=== PATIENT | male | born 1985 | race African-American/Black ===

== ENCOUNTER 2016-11-11 18:24 | Emergency (ER) | payer SELFPAY ==
--- NOTE | 2016-11-11 20:21 | ED ORDER SUMMARY ---
..... Patient: JOSE ZUNIGA OrderSheet [facility] VisitID: [id number] [address] [place] [address] 31y, M Registration Date/Time: 11/11/2016 ORDER SHEET Weight: 102.5 kg (stated) Allergies: No Known Drug Allergy GENERAL ORDERS: EKG - ER Stat (18:51 11/11/2016 EKoroleva P.A.-C) (18:59 Lolly) Vitals (20:09 11/11/2016 EKoroleva P.A.-C) (20:16 Mora R.N.) MEDICATION ORDERS: Motrin PO 800 mg (NOW) (18:51 11/11/2016 EKoroleva P.A.-C) (Ack 18:53 Raphael R.N.) (18:59 Raphael R.N.) Hydrocodone-APAP PO 5/325 mg (NOW, HIGH ALERT MEDICATION) (18:51 11/11/2016 EKoroleva P.A.-C) (Ack 18:53 Raphael R.N.) (18:59 Raphael R.N.) IV FLUIDS: ORDER SHEET NOTES: [Electronically signed by Elana Gonzalez R.N. (20:36 11/11/2016)] [Electronically signed by Karuna Main P.A.-C (21:59 11/11/2016)] [Electronically locked/signed by Elana Gonzalez R.N. (20:36 11/11/2016)]
--- NOTE | 2016-11-11 20:21 | ED CLINICAL REPORT ---
Clinical Report - Physicians/Mid Levels [facility] [address] [place] [place] [address] 11/11/2016 18:27 [id number] Time Seen: 18:59 Nov 11 2016. Arrived- By private vehicle. Historian- patient. HISTORY OF PRESENT ILLNESS Chief Complaint: feeling off/ shaky/ bl foot pain, high blood pressure. This started just prior to arrival and is still present. No loss of appetite, weight loss or fatigue. Denies sleep problem. (Pt is a 31 y/o male w/ ho plantar fasciiatis with now b/l pain worsening over last week, working extensive time, working two jobs. No new injury. Has felt off over last few days. Reports this happens when he has pain, unable to describe further his "weird feeling" . Has at times taken tylenol. Denies sob/ chest pain, ad pain. Denies headache.). REVIEW OF SYSTEMS No fever, sore throat, sinus drainage, nasal congestion or cough. No difficulty breathing, vomiting, chills or calf pain. All systems otherwise negative, except as recorded above. SOCIAL HISTORY Smoker- current status unknown. Alcohol use. No drug use. ADDITIONAL NOTES The nursing notes have been reviewed. PHYSICAL EXAM Vital Signs: 11/11/2016 18:34 BP: 180/116. HR: 109. RR: 18. O2 saturation: 100%. Pain level now: 10/10. Appearance: Alert. Eyes: Eyes normal inspection. ENT: Nose normal. Neck: Normal inspection. No lymphadenopathy. CVS: Normal heart rate and rhythm. Respiratory: No respiratory distress. Breath sounds normal. No accessory muscle use. Back: Normal inspection. No CVA tenderness. Skin: Skin warm. Normal skin color. Extremities: (mid foot plantar tenderness. , good b/l pulses. full rom, no rsh). Neuro: Oriented X 3. LABS, X-RAYS, AND EKG EKG: EKG time: (1856). No acute process. No acute ischemia. Tachycardia (105). Normal QRS complex. Normal axis. Normal QT. The study has been interpreted contemporaneously. The study has been independently viewed by me. The EKG appears to be a good tracing. PROGRESS AND PROCEDURES Course of Care: Perhaps bp may be elevated to pain, pt had podiatry prior, but now unable to do so, due to insurance. Pt with no headache. EKG negative. Pt bp normalizing, he is instructed to have such checked with his pcp, which he has. Given pain meds in interval. Otherwise no foot injury. 11/11/2016 20:33 BP: 144/90. HR: 89. RR: 20. O2 saturation: 97%. Pain level now: 09/08. Patient is stable. Physical exam findings are improved. Symptoms better. Patient/family counseled. Disposition: Discharged. CLINICAL IMPRESSION Hypertension. Right and left plantar fasciitis INSTRUCTIONS (elevate your feet). Warnings: Further evaluation is necessary. Prescription Medications: Ibuprofen 800 mg tablets: take 1 tablet orally every 8 hours for 5 days, as needed for pain. No refill. Ultram 50 mg: take 1 orally every 6 hours for 3 days. Dispense ten (10). No refills. Substitution is permissible. Follow-up: Follow up with your doctor in three days. Follow-up with: Jabari Del Valle DPM, Podiatry, , [facility], [address] [place] [address], [address], [place] [address] Follow up. Call for the next available appointment. (Electronically signed by Karuna Main P.A.-C 11/11/2016 21:59)
--- NOTE | 2016-11-11 20:21 | ED NURSING NOTES ---
Clinical Report - Nurses [facility] [address] [place] [address] 11/11/2016 18:27 [id number] Triage time 18:34. Acuity: LEVEL 3. Chief Complaint: BLOOD PRESSURE CHECK. Alert. No acute distress. JANEE COMA SCORE: [place] Coma Scale: 15- eyes open spontaneously (4); best verbal response- oriented x 4 (5); best motor response- obeys commands (6). --18:40 Rhonda Larson R.N. 18:34 11/11/16. BP: 180/116. HR: 109. RR: 18. O2 saturation: 100%. Pain level now: 06/08. --18:40 Rhonda Larson R.N. Weight: 102.5 kg stated. Height/Length: 74 inches Per Patient. BMI: 29. --18:36 Rhonda Larson R.N. Medications None. --18:35 Rhonda Larson R.N. Medication/allergy information source: the patient. --18:40 Rhonda Larson R.N. Allergies No Known Drug Allergy. --18:35 Rhonda Larson R.N. History Arrived by private vehicle. Historian: patient. Accompanied by family. Primary physician (none). Onset. (about 4 days). SOCIAL HX: Heavy tobacco smoker- less than 1 pack per day. Occasional alcohol use. No drug use. FALL RISK ASSESSMENT: Fall risk assessment completed. No fall risk identified. FUNCTIONAL ASSESSMENT: Functional assessment: no impairments noted. LEARNING NEEDS ASSESSMENT: The learning needs assessment revealed no barriers. --18:40 Rhonda Larson R.N. PROBLEMS: Dental Pain. Hypertension. --18:35 Rhonda Larson R.N. Foot pain. --18:37 Rhonda Larson R.N. ADDITIONAL SURGERIES: no known surgeries. Assessment GENERAL / NEURO / PSYCH: The patient is awake and alert, is oriented and cooperative and has good eye contact. RESPIRATORY: Respirations not labored. SKIN: Skin is warm and dry. --18:40 Rhonda Larson R.N. Interventions ID band on patient. To treatment room. --18:40 Rhonda Larson R.N. PHYSICAL ASSESSMENT 18:41 11/11/16. Ambulatory to room. Patient gowned. GENERAL / NEURO / PSYCH: The patient is awake and alert, is oriented and cooperative and appears uncomfortable. He has good eye contact. RESPIRATORY: Respirations not labored. SKIN: Skin is warm and dry. --18:41 Rhonda Larson R.N. NURSING PROGRESS NOTES 18:41 11/11/16. BP: 150/113 (large adult cuff) taken on the left arm. HR: 110. RR: 18. O2 saturation: 100% on room air. --18:42 Rhonda Larson R.N. 18:41 11/11/16. Pulse oximeter and NIBP monitor placed on patient. Patient gowned. Head of bed elevated. Call light placed in reach. Side rails up x 1. Bed placed in lowest position. Brakes of bed on. --18:42 Rhonda Larson R.N. 18:59 11/11/2016 Motrin PO Tablets 800 mg given. Allergies verified and confirmed 5 rights. --18:59 Rhonda Larson R.N. 18:59 11/11/2016 Hydrocodone-APAP (Hydrocodone-Acetaminophen) PO 5/325 mg Tablets 1 tab given. Allergies verified, confirmed 5 rights and sedative warning given to the patient. --18:59 Rhonda Larson R.N. 18:59 11/11/16. EKG time: (1855). EKG was performed by a tech and shown to the PA. --18:59 Anali Agee 18:59 11/11/16. coupon redemption clerk, pulse oximeter and NIBP monitor placed on patient; monitor alarms on. --18:59 Anali Agee Care transferred and report received. --19:23 Karen Hernandez R.N. 20:12 11/11/16. BP: 148/110. HR: 99. RR: 17. O2 saturation: 100%. --20:14 Hernandez, Karen, R.N. DISPOSITION / DISCHARGE Condition at departure: improved. No learning barriers present. Discharge instructions provided and reviewed with the patient. Reviewed medication(s) side effects, precautions, dosing and course information. Prescription(s) given to the patient. Patient verbalized understanding. Written instructions provided in Spanish. The patient was discharged home and accompanied by tire builder operator. He left the Emergency Department ambulatory and via private vehicle. Seeing Eye Dog Trainer driving. Medication list reviewed and validated. --20:34 Elana Gonzalez R.N. 20:33 11/11/16. BP: 144/90. HR: 89. RR: 20. O2 saturation: 97%. Temp: deferred. Pain level now: 09/08. 20:12 11/11/16. BP: 148/110. HR: 99. RR: 17. O2 saturation: 100%. 18:41 11/11/16. BP: 150/113 (large adult cuff) taken on the left arm. HR: 110. RR: 18. O2 saturation: 100% on room air. 18:34 11/11/16. BP: 180/116. HR: 109. RR: 18. O2 saturation: 100%. Pain level now: 06/08. --20:34 Elana Gonzalez R.N. Locked/Released at 11/11/2016 20:36 by Elana Gonzalez R.N.
--- NOTE | 2016-11-11 20:21 | ED ORDER SUMMARY ---
..... Patient: JOSE ZUNIGA OrderSheet [facility] VisitID: [id number] [address] [place] [address] 31y, M Registration Date/Time: 11/11/2016 ORDER SHEET Weight: 102.5 kg (stated) Allergies: No Known Drug Allergy GENERAL ORDERS: EKG - ER Stat (18:51 11/11/2016 EKoroleva P.A.-C) (18:59 Lolly) Vitals (20:09 11/11/2016 EKoroleva P.A.-C) (20:16 Mora R.N.) MEDICATION ORDERS: Motrin PO 800 mg (NOW) (18:51 11/11/2016 EKoroleva P.A.-C) (Ack 18:53 Raphael R.N.) (18:59 Raphael R.N.) Hydrocodone-APAP PO 5/325 mg (NOW, HIGH ALERT MEDICATION) (18:51 11/11/2016 EKoroleva P.A.-C) (Ack 18:53 Raphael R.N.) (18:59 Raphael R.N.) IV FLUIDS: ORDER SHEET NOTES: [Electronically signed by Elana Gonzalez R.N. (20:36 11/11/2016)] [Electronically signed by Karuna Main P.A.-C (21:59 11/11/2016)] [Electronically locked/signed by Elana Gonzalez R.N. (20:36 11/11/2016)]
--- NOTE | 2016-11-11 20:21 | ED NURSING NOTES ---
Clinical Report - Nurses [facility] [address] [place] [address] 11/11/2016 18:27 [id number] Triage time 18:34. Acuity: LEVEL 3. Chief Complaint: BLOOD PRESSURE CHECK. Alert. No acute distress. JANEE COMA SCORE: [place] Coma Scale: 15- eyes open spontaneously (4); best verbal response- oriented x 4 (5); best motor response- obeys commands (6). --18:40 Rhonda Larson R.N. 18:34 11/11/16. BP: 180/116. HR: 109. RR: 18. O2 saturation: 100%. Pain level now: 06/08. --18:40 Rhonda Larson R.N. Weight: 102.5 kg stated. Height/Length: 74 inches Per Patient. BMI: 29. --18:36 Rhonda Larson R.N. Medications None. --18:35 Rhonda Larson R.N. Medication/allergy information source: the patient. --18:40 Rhonda Larson R.N. Allergies No Known Drug Allergy. --18:35 Rhonda Larson R.N. History Arrived by private vehicle. Historian: patient. Accompanied by family. Primary physician (none). Onset. (about 4 days). SOCIAL HX: Heavy tobacco smoker- less than 1 pack per day. Occasional alcohol use. No drug use. FALL RISK ASSESSMENT: Fall risk assessment completed. No fall risk identified. FUNCTIONAL ASSESSMENT: Functional assessment: no impairments noted. LEARNING NEEDS ASSESSMENT: The learning needs assessment revealed no barriers. --18:40 Rhonda Larson R.N. PROBLEMS: Dental Pain. Hypertension. --18:35 Rhonda Larson R.N. Foot pain. --18:37 Rhonda Larson R.N. ADDITIONAL SURGERIES: no known surgeries. Assessment GENERAL / NEURO / PSYCH: The patient is awake and alert, is oriented and cooperative and has good eye contact. RESPIRATORY: Respirations not labored. SKIN: Skin is warm and dry. --18:40 Rhonda Larson R.N. Interventions ID band on patient. To treatment room. --18:40 Rhonda Larson R.N. PHYSICAL ASSESSMENT 18:41 11/11/16. Ambulatory to room. Patient gowned. GENERAL / NEURO / PSYCH: The patient is awake and alert, is oriented and cooperative and appears uncomfortable. He has good eye contact. RESPIRATORY: Respirations not labored. SKIN: Skin is warm and dry. --18:41 Rhonda Larson R.N. NURSING PROGRESS NOTES 18:41 11/11/16. BP: 150/113 (large adult cuff) taken on the left arm. HR: 110. RR: 18. O2 saturation: 100% on room air. --18:42 Rhonda Larson R.N. 18:41 11/11/16. Pulse oximeter and NIBP monitor placed on patient. Patient gowned. Head of bed elevated. Call light placed in reach. Side rails up x 1. Bed placed in lowest position. Brakes of bed on. --18:42 Rhonda Larson R.N. 18:59 11/11/2016 Motrin PO Tablets 800 mg given. Allergies verified and confirmed 5 rights. --18:59 Rhonda Larson R.N. 18:59 11/11/2016 Hydrocodone-APAP (Hydrocodone-Acetaminophen) PO 5/325 mg Tablets 1 tab given. Allergies verified, confirmed 5 rights and sedative warning given to the patient. --18:59 Rhonda Larson R.N. 18:59 11/11/16. EKG time: (1855). EKG was performed by a tech and shown to the PA. --18:59 Anali Agee 18:59 11/11/16. meatman, pulse oximeter and NIBP monitor placed on patient; monitor alarms on. --18:59 Anali Agee Care transferred and report received. --19:23 Karen Hernandez R.N. 20:12 11/11/16. BP: 148/110. HR: 99. RR: 17. O2 saturation: 100%. --20:14 Hernandez, Karen, R.N. DISPOSITION / DISCHARGE Condition at departure: improved. No learning barriers present. Discharge instructions provided and reviewed with the patient. Reviewed medication(s) side effects, precautions, dosing and course information. Prescription(s) given to the patient. Patient verbalized understanding. Written instructions provided in Grenadian. The patient was discharged home and accompanied by plastic sheeting cutter. He left the Emergency Department ambulatory and via private vehicle. Fish Net Maker driving. Medication list reviewed and validated. --20:34 Elana Gonzalez R.N. 20:33 11/11/16. BP: 144/90. HR: 89. RR: 20. O2 saturation: 97%. Temp: deferred. Pain level now: 09/08. 20:12 11/11/16. BP: 148/110. HR: 99. RR: 17. O2 saturation: 100%. 18:41 11/11/16. BP: 150/113 (large adult cuff) taken on the left arm. HR: 110. RR: 18. O2 saturation: 100% on room air. 18:34 11/11/16. BP: 180/116. HR: 109. RR: 18. O2 saturation: 100%. Pain level now: 06/08. --20:34 Elana Gonzalez R.N. Locked/Released at 11/11/2016 20:36 by Elana Gonzalez R.N.
--- NOTE | 2016-11-11 20:21 | ED CLINICAL REPORT ---
Clinical Report - Physicians/Mid Levels [facility] [address] [place] [place] [address] 11/11/2016 18:27 [id number] Time Seen: 18:59 Nov 11 2016. Arrived- By private vehicle. Historian- patient. HISTORY OF PRESENT ILLNESS Chief Complaint: feeling off/ shaky/ bl foot pain, high blood pressure. This started just prior to arrival and is still present. No loss of appetite, weight loss or fatigue. Denies sleep problem. (Pt is a 31 y/o male w/ ho plantar fasciiatis with now b/l pain worsening over last week, working extensive time, working two jobs. No new injury. Has felt off over last few days. Reports this happens when he has pain, unable to describe further his "weird feeling" . Has at times taken tylenol. Denies sob/ chest pain, ad pain. Denies headache.). REVIEW OF SYSTEMS No fever, sore throat, sinus drainage, nasal congestion or cough. No difficulty breathing, vomiting, chills or calf pain. All systems otherwise negative, except as recorded above. SOCIAL HISTORY Smoker- current status unknown. Alcohol use. No drug use. ADDITIONAL NOTES The nursing notes have been reviewed. PHYSICAL EXAM Vital Signs: 11/11/2016 18:34 BP: 180/116. HR: 109. RR: 18. O2 saturation: 100%. Pain level now: 10/10. Appearance: Alert. Eyes: Eyes normal inspection. ENT: Nose normal. Neck: Normal inspection. No lymphadenopathy. CVS: Normal heart rate and rhythm. Respiratory: No respiratory distress. Breath sounds normal. No accessory muscle use. Back: Normal inspection. No CVA tenderness. Skin: Skin warm. Normal skin color. Extremities: (mid foot plantar tenderness. , good b/l pulses. full rom, no rsh). Neuro: Oriented X 3. LABS, X-RAYS, AND EKG EKG: EKG time: (1856). No acute process. No acute ischemia. Tachycardia (105). Normal QRS complex. Normal axis. Normal QT. The study has been interpreted contemporaneously. The study has been independently viewed by me. The EKG appears to be a good tracing. PROGRESS AND PROCEDURES Course of Care: Perhaps bp may be elevated to pain, pt had podiatry prior, but now unable to do so, due to insurance. Pt with no headache. EKG negative. Pt bp normalizing, he is instructed to have such checked with his pcp, which he has. Given pain meds in interval. Otherwise no foot injury. 11/11/2016 20:33 BP: 144/90. HR: 89. RR: 20. O2 saturation: 97%. Pain level now: 09/08. Patient is stable. Physical exam findings are improved. Symptoms better. Patient/family counseled. Disposition: Discharged. CLINICAL IMPRESSION Hypertension. Right and left plantar fasciitis INSTRUCTIONS (elevate your feet). Warnings: Further evaluation is necessary. Prescription Medications: Ibuprofen 800 mg tablets: take 1 tablet orally every 8 hours for 5 days, as needed for pain. No refill. Ultram 50 mg: take 1 orally every 6 hours for 3 days. Dispense ten (10). No refills. Substitution is permissible. Follow-up: Follow up with your doctor in three days. Follow-up with: Jabari Del Valle DPM, Podiatry, , [facility], [address] [place] [address], [address], [place] [address] Follow up. Call for the next available appointment. (Electronically signed by Karuna Main P.A.-C 11/11/2016 21:59)
--- NOTE | 2016-11-11 21:59 | ED MAR SUMMARY ---
..... Medication Administration Record [facility] [address] [place] [address] Patient: JOSE ZUNIGA Visit ID: [id number] 31y, M Weight: 102.5 kg Height/Length: 74 in BMI: 29 ALLERGIES: No Known Drug Allergy Given 18:59 11/11/2016 Rhonda Larson RWesley Medication Administered: MOTRIN [PO], Dose: 800 mg Tablets PO. Medication Ordered: Motrin PO 800 mg (NOW). Given 18:59 11/11/2016 Rhonda Larson, R.N. Medication Administered: HYDROCODONE-APAP [PO] (HYDROCODONE-ACETAMINOPHEN), Dose: 1 tab 5/325 mg Tablets PO. Medication Ordered: Hydrocodone-APAP PO 5/325 mg (NOW, HIGH ALERT MEDICATION).
--- NOTE | 2016-11-11 21:59 | ED MED RECONCILIATION SUMMARY ---
Patient: JOSE ZUNIGA Medication Reconciliation Report [facility] VisitID: [id number] [place] [address] 31y, M Registration Date/Time: 11/11/2016 Weight: 102.5 kg Height/Length: 74 in. BMI: 29.0 ALLERGIES: No Known Drug Allergy The patient's Home Medications are listed below: NONE. The source(s) of the original Home Medication information: patient The following Medications were given to the patient in the Emergency Department: Motrin [PO] PO 800 mg, administered: 11/11/2016 6:59:00 PM Hydrocodone-APAP [PO] PO 1 tab, administered: 11/11/2016 6:59:00 PM The following Medications were prescribed to the patient: Ibuprofen 800 mg tablets: take 1 tablet orally every 8 hours for 5 days, as needed for pain. No refill. -- Karuna Main, P.A.-[place] Ultram 50 mg: take 1 orally every 6 hours for 3 days. Dispense ten (10). No refills. Substitution is permissible. -- Karuna Main, P.A.-C
--- NOTE | 2016-11-11 21:59 | ED MAR SUMMARY ---
..... Medication Administration Record [facility] [address] [place] [address] Patient: JOSE ZUNIGA Visit ID: [id number] 31y, M Weight: 102.5 kg Height/Length: 74 in BMI: 29 ALLERGIES: No Known Drug Allergy Given 18:59 11/11/2016 Rhonda Larson RWesley Medication Administered: MOTRIN [PO], Dose: 800 mg Tablets PO. Medication Ordered: Motrin PO 800 mg (NOW). Given 18:59 11/11/2016 Rhonda Larson, R.N. Medication Administered: HYDROCODONE-APAP [PO] (HYDROCODONE-ACETAMINOPHEN), Dose: 1 tab 5/325 mg Tablets PO. Medication Ordered: Hydrocodone-APAP PO 5/325 mg (NOW, HIGH ALERT MEDICATION).
--- NOTE | 2016-11-11 21:59 | ED DISCHARGE INSTRUCTIONS ---
Patient: JOSE ZUNIGA General Instructions [facility] VisitID: [id number] [place] [address] 31y, M Registration Date/Time: 11/11/2016 Hypertension. Right and left plantar fasciitis INSTRUCTIONS (elevate your feet). Warnings: Further evaluation is necessary. Prescription Medications: Ibuprofen 800 mg tablets: take 1 tablet orally every 8 hours for 5 days, as needed for pain. No refill. Ultram 50 mg: take 1 orally every 6 hours for 3 days. Dispense ten (10). No refills. Substitution is permissible. Follow-up: Follow up with your doctor in three days. Follow-up with: Jabari Del Valle DPM, Podiatry, , [facility], [address] [place] [address], [address], [place] [address] Follow up. Call for the next available appointment. ADDITIONAL INFORMATION High Blood Pressure -- To Be Confirmed [No Tx] Your blood pressure was higher today than normal. Sometimes anxiety or pain can cause a temporary rise in blood pressure that later returns to normal. If your blood pressure is high on one measurement, this does not mean that you have hypertension (a chronic illness). However, you must have your blood pressure measured again within the next few days to find out if its still high. A normal blood pressure is 120/80 or less. The first (top) number is the "systolic" pressure. The second (bottom) number is the "diastolic" pressure. Hypertension exists when either the top number is 140 or higher, OR the bottom number is 90 or higher on repeated measurements. Blood pressure in the range of 120-140 (systolic) or 80-89 (diastolic) is considered "pre-hypertension". This means your are at risk for getting hypertension. You should have regular blood pressure checks to be sure your blood pressure is not rising. Home Care: Measure your blood pressure on 3 different days and write down the results. This can be done at your doctor's office or this facility. Some pharmacies and grocery stores offer automated blood pressure machines for your use. Follow Up: If your blood pressure is "high" (over 120/80) on 2 out of 3 days, you will need to follow up with your doctor for further evaluation and treatment. DO NOT PUT THIS OFF! Untreated high blood pressure increases the risk for heart attack, also known as acute myocardial infarction, or AMI, and stroke. It is a treatable condition. Get Prompt Medical Attention if any of the following occur: Chest pain or shortness of breath Severe headache Throbbing or rushing sound in the ears Nosebleed Sudden severe abdominal pain Extreme drowsiness, confusion or fainting Dizziness or vertigo (dizziness with spinning sensation) Weakness of an arm or leg or one side of the face Difficulty with speech or vision Plantar Fasciitis The plantar fascia is a thick fibrous layer of tissue that covers the bones on the bottom of your foot. It supports the foot bones in an arched position. can develop gradually or suddenly. It usually affects one foot at a time. Heel pain can be sharp and feel like a knife sticking in the bottom of your foot. Pain may occur after exercising, long distance jogging, stair climbing, long periods of standing, or after getting up from a seated position. Risk factors include arthritis, diabetes, obesity or recent weight gain, flat-foot, high arch, wearing high heels or loose shoes or shoes with a poor arch support. Foot pain from this condition is usually worse in the morning and improves with walking. By the end of the day there may be a dull aching. Treatment requires short-term rest and controlling inflammation. It may take up to nine months before all symptoms go away with the measures described below. Rarely, a steroid injection into the foot or surgery may be needed. Home Care If you are overweight, lose weight to promote healing. Choose supportive shoes with good arch support and shock absorbency. Replace athletic shoes when they become worn out. Dont walk or run barefoot. Shoe inserts are an important part of treatment. These will provide optimal arch support. While you can buy [id number] shoe inserts inexpensively, the best ones are those made for you by a vice president residential solar sales (nutrient management specialist). Night splints (provided by a vice president residential solar sales) keep the heel stretched out while you sleep and prevent morning pain. Avoid activities that stress the feet: jogging, prolonged standing or walking, contact sports, etc. First thing in the morning and before sports, stretch the bottom of your feet. Gently flex your ankle so the foot moves toward your knee. Icing may help control heel pain. Apply an ice pack (ice cubes in a plastic bag, wrapped in a towel) to the heel for 10-20 minutes as a preventive or after an acute flare of symptoms. You may repeat this every 1-2 hours as needed. You may use acetaminophen (Tylenol) or ibuprofen (Motrin, Advil) to control pain, unless another medicine was prescribed. [NOTE: If you have chronic liver or kidney disease or ever had a stomach ulcer or GI bleeding, talk with your doctor before using these medicines.] Follow Up with your doctor or a vice president residential solar sales (nutrient management specialist) as advised by our staff. Call for an appointment if pain worsens or there is no relief after a few weeks of home treatment. Shoe inserts, a night splint or a special boot may be required. [NOTE: If x-rays were taken, they will be reviewed by a radiologist. You will be notified of any new findings that may affect your care.] Return Promptly or contact your physician if any of the following occurs: Foot swelling or redness with increasing pain You have been given the following additional information: Hypertension, To Be Confirmed Plantar Fasciitis (Electronically signed by Karuna Main P.A.-C 11/11/2016 21:59)
--- NOTE | 2016-11-11 21:59 | ED DISCHARGE INSTRUCTIONS ---
Patient: JOSE ZUNIGA General Instructions [facility] VisitID: [id number] [place] [address] 31y, M Registration Date/Time: 11/11/2016 Hypertension. Right and left plantar fasciitis INSTRUCTIONS (elevate your feet). Warnings: Further evaluation is necessary. Prescription Medications: Ibuprofen 800 mg tablets: take 1 tablet orally every 8 hours for 5 days, as needed for pain. No refill. Ultram 50 mg: take 1 orally every 6 hours for 3 days. Dispense ten (10). No refills. Substitution is permissible. Follow-up: Follow up with your doctor in three days. Follow-up with: Jabari Del Valle DPM, Podiatry, , [facility], [address] [place] [address], [address], [place] [address] Follow up. Call for the next available appointment. ADDITIONAL INFORMATION High Blood Pressure -- To Be Confirmed [No Tx] Your blood pressure was higher today than normal. Sometimes anxiety or pain can cause a temporary rise in blood pressure that later returns to normal. If your blood pressure is high on one measurement, this does not mean that you have hypertension (a chronic illness). However, you must have your blood pressure measured again within the next few days to find out if its still high. A normal blood pressure is 120/80 or less. The first (top) number is the "systolic" pressure. The second (bottom) number is the "diastolic" pressure. Hypertension exists when either the top number is 140 or higher, OR the bottom number is 90 or higher on repeated measurements. Blood pressure in the range of 120-140 (systolic) or 80-89 (diastolic) is considered "pre-hypertension". This means your are at risk for getting hypertension. You should have regular blood pressure checks to be sure your blood pressure is not rising. Home Care: Measure your blood pressure on 3 different days and write down the results. This can be done at your doctor's office or this facility. Some pharmacies and grocery stores offer automated blood pressure machines for your use. Follow Up: If your blood pressure is "high" (over 120/80) on 2 out of 3 days, you will need to follow up with your doctor for further evaluation and treatment. DO NOT PUT THIS OFF! Untreated high blood pressure increases the risk for heart attack, also known as acute myocardial infarction, or AMI, and stroke. It is a treatable condition. Get Prompt Medical Attention if any of the following occur: Chest pain or shortness of breath Severe headache Throbbing or rushing sound in the ears Nosebleed Sudden severe abdominal pain Extreme drowsiness, confusion or fainting Dizziness or vertigo (dizziness with spinning sensation) Weakness of an arm or leg or one side of the face Difficulty with speech or vision Plantar Fasciitis The plantar fascia is a thick fibrous layer of tissue that covers the bones on the bottom of your foot. It supports the foot bones in an arched position. can develop gradually or suddenly. It usually affects one foot at a time. Heel pain can be sharp and feel like a knife sticking in the bottom of your foot. Pain may occur after exercising, long distance jogging, stair climbing, long periods of standing, or after getting up from a seated position. Risk factors include arthritis, diabetes, obesity or recent weight gain, flat-foot, high arch, wearing high heels or loose shoes or shoes with a poor arch support. Foot pain from this condition is usually worse in the morning and improves with walking. By the end of the day there may be a dull aching. Treatment requires short-term rest and controlling inflammation. It may take up to nine months before all symptoms go away with the measures described below. Rarely, a steroid injection into the foot or surgery may be needed. Home Care If you are overweight, lose weight to promote healing. Choose supportive shoes with good arch support and shock absorbency. Replace athletic shoes when they become worn out. Dont walk or run barefoot. Shoe inserts are an important part of treatment. These will provide optimal arch support. While you can buy [id number] shoe inserts inexpensively, the best ones are those made for you by a family advocate (precision agriculture specialist). Night splints (provided by a family advocate) keep the heel stretched out while you sleep and prevent morning pain. Avoid activities that stress the feet: jogging, prolonged standing or walking, contact sports, etc. First thing in the morning and before sports, stretch the bottom of your feet. Gently flex your ankle so the foot moves toward your knee. Icing may help control heel pain. Apply an ice pack (ice cubes in a plastic bag, wrapped in a towel) to the heel for 10-20 minutes as a preventive or after an acute flare of symptoms. You may repeat this every 1-2 hours as needed. You may use acetaminophen (Tylenol) or ibuprofen (Motrin, Advil) to control pain, unless another medicine was prescribed. [NOTE: If you have chronic liver or kidney disease or ever had a stomach ulcer or GI bleeding, talk with your doctor before using these medicines.] Follow Up with your doctor or a family advocate (precision agriculture specialist) as advised by our staff. Call for an appointment if pain worsens or there is no relief after a few weeks of home treatment. Shoe inserts, a night splint or a special boot may be required. [NOTE: If x-rays were taken, they will be reviewed by a radiologist. You will be notified of any new findings that may affect your care.] Return Promptly or contact your physician if any of the following occurs: Foot swelling or redness with increasing pain You have been given the following additional information: Hypertension, To Be Confirmed Plantar Fasciitis (Electronically signed by Karuna Main P.A.-C 11/11/2016 21:59)
--- NOTE | 2016-11-11 21:59 | ED MED RECONCILIATION SUMMARY ---
Patient: JOSE ZUNIGA Medication Reconciliation Report [facility] VisitID: [id number] [place] [address] 31y, M Registration Date/Time: 11/11/2016 Weight: 102.5 kg Height/Length: 74 in. BMI: 29.0 ALLERGIES: No Known Drug Allergy The patient's Home Medications are listed below: NONE. The source(s) of the original Home Medication information: patient The following Medications were given to the patient in the Emergency Department: Motrin [PO] PO 800 mg, administered: 11/11/2016 6:59:00 PM Hydrocodone-APAP [PO] PO 1 tab, administered: 11/11/2016 6:59:00 PM The following Medications were prescribed to the patient: Ibuprofen 800 mg tablets: take 1 tablet orally every 8 hours for 5 days, as needed for pain. No refill. -- Karuna Main, P.A.-[place] Ultram 50 mg: take 1 orally every 6 hours for 3 days. Dispense ten (10). No refills. Substitution is permissible. -- Karuna Main, P.A.-C
== END 2016-11-11 20:30 ==
LOC: ED SRH 18:24
DX: M72.2 Plantar fascial fibromatosis (principal); I10 Essential (primary) hypertension